=== PATIENT | male | born 1930 | race Two or more races ===

== ENCOUNTER → 2017-05-12 | Outpatient (CLI) | payer OTHER ==
[~2017-05-12] MED LIST: BETH25 PO; CALC-51 PO; DULO30CA2 PO; FAMO20 PO; FERR-89 PO; FOLI1 PO; LACT1TAB11 PO; LACT30L PO; MULT-29 PO; TAMS0.4C32 PO; VITAD1000 PO
== END | disposition home or self-care (01) ==
LOC: RADPV 08:40
PROVIDERS: ATTEND Internal Medicine Cardiovascular Disease
DX: I50.1 Left ventricular failure, unspecified (principal); I08.3 Combined rheumatic disorders of mitral, aortic and tricuspid valves
CPT/HCPCS: 93306